=== PATIENT | female | born 1995 | race Caucasian/White ===

== ENCOUNTER 2016-06-24 11:49 | Emergency (ER) | payer OTHER ==
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
[2016-06-24 12:56] LABS: Appearance,Urine Cloudy (Clear); Bacteria,Urine Rare /hpf; Bilirubin,Urine Negative (Negative); Glucose,Urine (UA) Negative (Negative); Ketones,Urine 2+ (Negative); Leukocyte Esterase,Urine Negative (Negative); Mucus,Urine Many /hpf; Nitrite,Urine Negative (Negative); Particle Count 12384; Protein,Urine 1+ (Negative); RBC,Urine 4 /hpf (0-5); Specific Gravity,Urine 1.028 (1.001-1.035); Squamous Epithelial Cell,Urine 12 /hpf (0-4); UA Billing (MACRO vs. MICRO) MICRO; Urobilinogen,Urine <2.0 mg/dL (<2.0); WBC,Urine 1 /hpf (0-5)
--- NOTE | 2016-06-24 13:26 | XR ---
EXAMINATION TYPE: XR chest 2V DATE OF EXAM: 06/24/2016 1:21 PM COMPARISON: 06/16/2015 TECHNIQUE: PA and lateral views submitted. HISTORY: Cough, flulike symptoms FINDINGS: The lungs are clear and there is no pneumothorax, pleural effusion, or focal pneumonia. Slight curv ature of the spine. Rib deformities on the previous exam appear to be improved. IMPRESSION: 1. No acute process.
[2016-06-24 14:07] VITALS: BP 120/70; PULSE 85; RESP 18; TEMP 97.8
== END 2016-06-24 14:07 | disposition home or self-care (01) ==
LOC: EC 11:49
DX: S10.91XA Abrasion of unspecified part of neck, initial encounter (principal); J06.9 Acute upper respiratory infection, unspecified; L25.9 Unspecified contact dermatitis, unspecified cause; F17.200 Nicotine dependence, unspecified, uncomplicated; Z32.02 Encounter for pregnancy test, result negative; Z88.0 Allergy status to penicillin; Y04.0XXA Assault by unarmed brawl or fight, initial encounter
CPT/HCPCS: 71020; 81001; 81025; 87081; 87430; 87502; 99284

== ENCOUNTER 2017-01-31 14:59 | Emergency (ER) | payer OTHER ==
[2017-01-31 15:21] VITALS: BP 122/67; PULSE 101; RESP 18; TEMP 98.7
--- NOTE | 2017-01-31 15:41 | ED ---
ENT HPI - General Chief complaint: Dental/Oral Stated complaint: Abcess tooth Time Seen by Provider: 01/31/17 15:21 Source: patient, RN notes reviewed, old records reviewed Mode of arrival: ambulatory Limitations: no limitations - History of Present Illness Initial comments: 21-year-old female presents emergency Department chief complaint of an abscess tooth #4. Patient reports that she woke up yesterday with severe swelling over her gum. She reports that she thinks that that abscess is now popped and drained but she still has some swelling and pain over her gums. She states she has history of poor teeth. Patient states she is also concerned she might possibly be . She states that she stopped taking control 2 weeks ago, and there is a chance she could be . Patient states that she has abdominal pain, chest pain, shortness breath, nausea, vomiting or fevers or chills. Denies any difficulty swallowing or trismus. - Related Data Previous Rx's Medication Instructions Recorded Acetaminophen-Codeine 300-30mg 1 tab PO Q6H PRN #12 tablet 01/31/17 [Tylenol #3] Clindamycin [Cleocin] 450 mg PO TID 7 Days capsule 01/31/17 Allergies Allergy/AdvReac Type Severity Reaction Status Date / Time Penicillins Allergy Anaphylaxis Verified 01/31/17 15:16 Review of Systems ROS Statement: Those systems with pertinent positive or pertinent negative responses have been documented in the HPI. ROS Other: All systems not noted in ROS Statement are negative. Past Medical History Additional Past Medical History / Comment(s): back pain, rt ovarian cyst History of Any Multi-Drug Resistant Organisms: None Reported Past Surgical History: No Surgical Hx Reported Past Psychological History: Anxiety Smoking Status: Current every day smoker Past Alcohol Use History: None Reported Past Drug Use History: Marijuana General Exam - General Exam Comments Initial Comments: 21-year-old female. No acute distress. Limitations: no limitations General appearance: alert, in no apparent distress Head exam: Present: atraumatic, normocephalic, normal inspection Eye exam: Present: normal appearance, PERRL, EOMI. Absent: scleral icterus, conjunctival injection, periorbital swelling ENT exam: Present: normal exam, mucous membranes moist. Absent: other (Patient has poor dentition. Patient has abscess tooth #4.) Neck exam: Present: normal inspection. Absent: tenderness, meningismus, lymphadenopathy Respiratory exam: Present: normal lung sounds bilaterally. Absent: respiratory distress, wheezes, rales, rhonchi, stridor Cardiovascular Exam: Present: regular rate, normal rhythm, normal heart sounds. Absent: systolic murmur, diastolic murmur, rubs, gallop, clicks GI/Abdominal exam: Present: soft, normal bowel sounds. Absent: distended, tenderness, guarding, rebound, rigid Extremities exam: Present: normal inspection, full ROM, normal capillary refill. Absent: tenderness, pedal edema, joint swelling, calf tenderness Back exam: Present: normal inspection Neurological exam: Present: alert, oriented X3, CN II-XII intact Psychiatric exam: Present: normal affect, normal mood Skin exam: Present: warm, dry, intact, normal color. Absent: rash Course Vital Signs 01/31/17 15:19 Temperature 98.7 F Pulse Rate 101 H Respiratory 18 Rate Blood Pressure 122/67 O2 Sat by Pulse 98 Oximetry Medical Decision Making - Medical Decision Making 21-year-old female chief complaint of a dental abscess in tooth #4, and possibility . Patient has negative urine hCG. She does have some swelling and significant tenderness around the gum of tooth #4 and 5. Tooth #4 is broken off, multiple dental caries. Patient has no trismus, no difficulty swallowing or neck or face swelling. This time I'll put the patient on antibiotics for Dental infection. Patient was placed on clindamycin and she is ALLERGIC to penicillins. Discussed following up with a dentist, discussed the importance smoking cessation as well. Discussed smoking cessation for over 10 minutes. Discussed following up with primary care provider medications to aid in smoking cessation, and also discussed she needs repeat her urine hcg test in 2 weeks - Lab Data Lab Results 01/31/17 Range/Units 15:38 Urine HCG, Qual Not Detected (Not Detectd) - Radiology Data Radiology results: report reviewed Disposition Clinical Impression: Dental infection Disposition: HOME SELF-CARE Condition: Good Instructions: Dental Abscess (ED), Dental Caries (ED) Additional Instructions: [facility] [address] [place] [address] [phone] (existing clients only) For new clients: [phone] 1st consult: $50 (includes Xrays) Usually 30% less then private dentist for visits after. [employer] Have to pay $50 for Xrays anmd rest is covered. [phone] Prescriptions: Acetaminophen-Codeine 300-30mg [Tylenol #3] 1 tab PO Q6H PRN #12 tablet PRN Reason: Pain Clindamycin [Cleocin] 450 mg PO TID 7 Days capsule Referrals: Alejandro Ding MD [Primary Care Provider] - 1-2 days Time of Disposition: 15:56
== END 2017-01-31 16:05 | disposition home or self-care (01) ==
LOC: EC 14:59
DX: K04.7 Periapical abscess without sinus (principal); F17.200 Nicotine dependence, unspecified, uncomplicated; Z88.0 Allergy status to penicillin
CPT/HCPCS: 81025; 99283

== ENCOUNTER 2017-03-06 12:27 | Emergency (ER) | payer OTHER ==
[2017-03-06] MEDS ORDERED: ACETAMINOPHEN TAB 325 MG TAB PO STA (14:10)
--- NOTE | 2017-03-06 14:13 | ED ---
General Adult HPI - General Chief complaint: Skin/Abscess/Foreign Body Stated complaint: Cyst on Tailbone Time Seen by Provider: 03/06/17 13:36 Source: patient Mode of arrival: ambulatory Limitations: no limitations - History of Present Illness Initial comments: patient presents with a chief complaint of back pain and a missed period. Patient states that her back pain is an ache and is mostly in her shoulders. This is been going on for about one week. 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 There are no alleviating factors that she can think of that she has not tried any medications at home. Aggravating factors include moving her upper extremities and she states that her back is extra tight when she wakes up from sleep. Patient denies any other symptoms at this time - Related Data Previous Rx's Medication Instructions Recorded Methocarbamol [Robaxin-750] 750 mg PO TID PRN #15 tablet 03/06/17 Allergies Allergy/AdvReac Type Severity Reaction Status Date / Time Penicillins Allergy Anaphylaxis Verified 03/06/17 13:42 Review of Systems ROS Statement: Those systems with pertinent positive or pertinent negative responses have been documented in the HPI. ROS Other: All systems not noted in ROS Statement are negative. Constitutional: Denies: fever Eyes: Denies: vision change ENT: Denies: throat pain Respiratory: Denies: cough Cardiovascular: Denies: chest pain Gastrointestinal: Denies: abdominal pain, nausea, vomiting Genitourinary: Denies: dysuria Musculoskeletal: Reports: back pain, myalgia Neurological: Denies: headache Past Medical History Additional Past Medical History / Comment(s): back pain, rt ovarian cyst History of Any Multi-Drug Resistant Organisms: None Reported Past Surgical History: No Surgical Hx Reported Past Psychological History: Anxiety Smoking Status: Current every day smoker Past Alcohol Use History: None Reported Past Drug Use History: Marijuana General Exam Limitations: no limitations General appearance: alert, in no apparent distress Head exam: Present: atraumatic, normocephalic Eye exam: Present: normal appearance Neck exam: Present: normal inspection Respiratory exam: Present: normal lung sounds bilaterally Cardiovascular Exam: Present: regular rate, normal rhythm GI/Abdominal exam: Present: soft. Absent: distended, tenderness Rectal exam: Present: deferred Extremities exam: Present: normal inspection Back exam: Present: muscle spasm, paraspinal tenderness Neurological exam: Present: alert, oriented X3 Psychiatric exam: Present: normal affect, normal mood Skin exam: Present: warm, dry, intact Course Vital Signs 03/06/17 12:28 Temperature 97.3 F L Pulse Rate 105 H Respiratory 18 Rate Blood Pressure 107/66 O2 Sat by Pulse 99 Oximetry Medical Decision Making - Medical Decision Making patient presents with chief complaint of back pain and concern for . Back pain appears musculoskeletal in nature, patient is able to gait and move well. The tenderness is in the paraspinal musculature. Patient has not tried taking anything for this at home. Because she is concerned about , she will be given a dose of Tylenol while we check a urinalysis and urine hCG. 2:40 PM Urinalysis does not show any evidence of infection, further hCG is negative. Patient was given a dose of Robaxin the emergency department prescribe Robaxin for outpatient use for muscle spasm. She is instructed to follow up with primary care is given signs and symptoms that should prompt return visit to the emergency department. - Lab Data Lab Results 03/06/17 03/06/17 Range/Units 14:24 14:24 Urine Color Yellow Urine Appearance Turbid H (Clear) Urine pH 8.0 (5.0-8.0) Ur Specific [place] 1.014 (1.001-1.035) Urine Protein Trace H (Negative) Urine Glucose (UA) Negative (Negative) Urine Ketones Negative (Negative) Urine Blood Negative (Negative) Urine Nitrite Negative (Negative) Urine Bilirubin Negative (Negative) Urine Urobilinogen <2.0 (<2.0) mg/dL Ur Leukocyte Esterase Negative (Negative) Ur Squamous Epith Cells 14 H (0-4) /hpf Amorphous Sediment Moderate H (None) /hpf Urine HCG, Qual Not Detected (Not Detectd) Disposition Clinical Impression: Muscle spasm Disposition: HOME SELF-CARE Condition: Good Instructions: Muscle Spasm (ED) Prescriptions: Methocarbamol [Robaxin-750] 750 mg PO TID PRN #15 tablet PRN Reason: Muscle Spasm Referrals: Alejandro Ding MD [Primary Care Provider] - 1-2 days
[2017-03-06 14:36] LABS: Amorphous Sediment,Urine Moderate /hpf; Appearance,Urine Turbid (Clear); Bilirubin,Urine Negative (Negative); Glucose,Urine (UA) Negative (Negative); Ketones,Urine Negative (Negative); Leukocyte Esterase,Urine Negative (Negative); Nitrite,Urine Negative (Negative); Particle Count 18906; Protein,Urine Trace (Negative); Specific Gravity,Urine 1.014 (1.001-1.035); Squamous Epithelial Cell,Urine 14 /hpf (0-4); UA Billing (MACRO vs. MICRO) MICRO; Urobilinogen,Urine <2.0 mg/dL (<2.0)
[2017-03-06] MEDS ORDERED: METHOCARBAMOL 750 MG TAB PO PRN (14:38)
[2017-03-06 14:52] VITALS: BP 104/55; PULSE 75; RESP 16; TEMP 98
== END 2017-03-06 15:19 | disposition home or self-care (01) ==
LOC: EC 12:27
DX: M62.830 Muscle spasm of back (principal); F17.200 Nicotine dependence, unspecified, uncomplicated; Z88.0 Allergy status to penicillin
CPT/HCPCS: 81001; 81025; 99283

== ENCOUNTER → 2017-06-20 | Outpatient (CLI) | payer OTHER ==
--- NOTE | 2017-06-20 16:29 | US ---
EXAMINATION TYPE: US OB <= 14 wk fetus DATE OF EXAM: 06/20/2017 COMPARISON: NONE CLINICAL HISTORY: O99.331 Tobacco smoking affecting . Confirm dates EXAM PERFORMED: Transabdominal (TA) EXAM MEASUREMENTS: GESTATIONAL AGE / DATING Physician Established: Not yet established Dates by LMP: (13 weeks/1 days) EDC: 12/25/2017 Dates by First Scan: No prior Dates by Current Scan for: (7 weeks/6 days) EDC: 01/31/2018 MATERNAL ANATOMY Uterus: 9.5 x 5.1 x 6.6 cm Right Ovary: 1.7 x 1.0 x 1.7 cm Left Ovary: 2.9 x 1.7 x 2.8 cm Post CDS / Adnexa: wnl Presence of free fluid: No Presence of corpus luteal cyst: Left Ovary= 1.7 x 1.4 x 1.2 cm Presence of subchorionic bleed: No GESTATION / SURVEY CRL: 1.5 cm (7 weeks/6 days) MSD: wnl Yolk Sac (normal less than 6mm): 3mm Heart Rate: 165 bpm Rhythm: Normal IUP: Viable IUP Date of LMP: Pt not sure, thinks 03/20/2017 Single, viable IUP, No abnormality visualized at this time IMPRESSION: 1. Single intrauterine gestation estimated at 7 weeks 6 days gestation based on crown-rump length. Ca rdiac activity measures 165 bpm. This would have a calculated EDC of 01/31/2018 based on the crown-ru mp length at this time.
== END | disposition home or self-care (01) ==
LOC: RADUSMAIN 15:47
PROVIDERS: ATTEND Obstetrics & Gynecology
DX: O99.331 Smoking (tobacco) complicating pregnancy, first trimester (principal); F17.200 Nicotine dependence, unspecified, uncomplicated; Z3A.01 Less than 8 weeks gestation of pregnancy
CPT/HCPCS: 76801

== ENCOUNTER 2017-08-01 18:59 | Emergency (ER) | payer OTHER ==
--- NOTE | 2017-08-01 20:19 | ED ---
Lower Extremity Injury HPI - General Chief Complaint: Extremity Injury, Lower Stated Complaint: hip/back/lower abominal pain-13 wks preg Time Seen by Provider: 08/01/17 20:02 Source: patient, RN notes reviewed Mode of arrival: ambulatory Limitations: no limitations - History of Present Illness Initial Comments: This is a 22-year-old female presents to the emergency department with chief complaint of left hip injury. Patient states that she is currently 13 weeks . She states that she was working this evening. At approximately 5:30 PM she was lifting a bale. She states that she felt a sudden "pop" in her left hip. She complains of pain in the hip on ambulation with radiation to her left groin. Denies any falls or trauma. She states she is most concerned about her baby. Denies any vaginal bleeding or discharge. Denies any significant abdominal pain, nausea or vomiting. Denies fevers or chills, chest pain or shortness breath. - Related Data Home Medications Medication Instructions Recorded Confirmed Pnv No.95/Ferrous Fum/Folic AC 1 tab PO DAILY 08/01/17 08/01/17 [ Multivitamin Tablet] Allergies Allergy/AdvReac Type Severity Reaction Status Date / Time Penicillins Allergy Anaphylaxis Verified 08/01/17 19:56 Review of Systems ROS Statement: Those systems with pertinent positive or pertinent negative responses have been documented in the HPI. ROS Other: All systems not noted in ROS Statement are negative. Past Medical History Additional Past Medical History / Comment(s): back pain, rt ovarian cyst History of Any Multi-Drug Resistant Organisms: None Reported Past Surgical History: No Surgical Hx Reported Past Psychological History: Anxiety Smoking Status: Current every day smoker Past Alcohol Use History: None Reported Past Drug Use History: Marijuana General Exam - General Exam Comments Initial Comments: General: Awake and alert, well-developed; in no apparent distress. HEENT: Head atraumatic, normocephalic. Pupils are equal, round and reactive to light. Extraocular movements intact. Oropharynx moist without erythema or exudate. Neck: Supple. Normal ROM. Cardiovascular: Regular rate and rhythm. No murmurs, rubs or gallops. Chest symmetrical. Respiratory: Lungs clear to auscultation bilaterally. No wheezes, rales or rhonchi. Normal respiratory effort with no use of accessory muscles. Abdomen: Soft, non-tender, non-distended. No rigidity, rebound or guarding. Normal bowel sounds in all 4 quadrants. Musculoskeletal: Normal range of motion of the left hip. No tenderness on palpation. No obvious gross deformities. Patient is ambulating normally. Pedal pulses are 2+ equal and palpable bilaterally. Skin: [place], warm and dry without rashes or lesions. Neurological: Alert and oriented x3. CN II-XII grossly intact. Speech is fluent and answers are appropriate. No focal neuro deficits. Psychiatric: Normal mood and affect. No overt signs of depression or anxiety noted. Limitations: no limitations Course Vital Signs 08/01/17 19:35 Temperature 98.0 F Pulse Rate 88 Respiratory 17 Rate Blood Pressure 143/84 O2 Sat by Pulse 95 Oximetry Medical Decision Making - Medical Decision Making This is a 22-year-old female who presents to the emergency department with chief complaint of left hip injury. She states that earlier this evening while at work she felt a "pop" in her left hip. She complains of pain with walking. She states the pain is in her left hip and radiates to her groin. Patient states she is currently 13 weeks . Denies any abdominal pain, nausea or vomiting, vaginal bleeding or discharge. On physical examination, patient has normal range of motion of the left hip and there is no tenderness on palpation. She is ambulating normally. No obvious gross deformities. On review of patient's chart, there is a confirmed intrauterine on an ultrasound obtained on 06/20/2017. At that time patient was 7 weeks, 6 days gestation. Patient was evaluated by labor and delivery and heart tones were auscultated. Heart tones were in the 140s to 150s. Patient will be discharged home at this time. Recommend following up with her WAREHOUSE LOGISTICS COORDINATOR. She is in agreement with plan and voices understanding. All questions answered. Disposition Clinical Impression: Strain of left hip Disposition: HOME SELF-CARE Condition: Good Instructions: Hip Pain (ED) Additional Instructions: Please follow-up with your WAREHOUSE LOGISTICS COORDINATOR within 1-2 days. Please take Tylenol as needed for pain. Please follow up with primary care provider within 1-2 days. Return to emergency department if symptoms should worsen or any concerns arise. Is patient prescribed a controlled substance at d/c from ED?: No Referrals: Piedad Quintanilla MD [Primary Care Provider] - 1-2 days Time of Disposition: 21:04
[2017-08-01 21:16] VITALS: BP 105/61; PULSE 82; RESP 18; TEMP 98.1
== END 2017-08-01 21:15 | disposition home or self-care (01) ==
LOC: EC 18:59
DX: O9A.211 Injury, poisoning and certain other consequences of external causes complicating pregnancy, first trimester (principal); S76.012A Strain of muscle, fascia and tendon of left hip, initial encounter; O99.89 Other specified diseases and conditions complicating pregnancy, childbirth and the puerperium; R10.32 Left lower quadrant pain; O99.331 Smoking (tobacco) complicating pregnancy, first trimester; F17.200 Nicotine dependence, unspecified, uncomplicated; Z79.899 Other long term (current) drug therapy; Z88.0 Allergy status to penicillin; Z3A.13 13 weeks gestation of pregnancy; X50.0XXA Overexertion from strenuous movement or load, initial encounter; Y93.89 Activity, other specified; Y92.69 Other specified industrial and construction area as the place of occurrence of the external cause; Y99.0 Civilian activity done for income or pay
CPT/HCPCS: 99283

== ENCOUNTER → 2017-09-13 | Outpatient (CLI) | payer OTHER ==
--- NOTE | 2017-09-13 13:17 | US ---
EXAMINATION TYPE: US OB anatomy transabd DATE OF EXAM: 09/13/2017 COMPARISON: US 06/20/17 first trimester HISTORY: Z34.90 SUPERVISION OF NORMAL PREG second trimester TECHNIQUE: Transabdominal (TA) EXAM MEASUREMENTS: GESTATIONAL AGE / DATING Physician Established: (20 weeks/0 days) EDC: 01/31/2018 Dates by LMP: Unsure Dates by First Scan: (20 weeks/ 0 days) EDC: 01/31/2018 Dates by Current Scan for: (20 weeks/ 2 days) EDC: 01/29/2018 SURVEY IUP: Single PLACENTA: Posterior PREVIA: No previa LOTUS: 10.9 cm Normal CERVICAL LENGTH (transabdominal: norm > 3.0cm): 4.8 cm BIOMETRY PRESENTATION: Variable LIE: Oblique BPD: 4.7 cm 20 weeks / 1 days HC: 6.3 cm 20 weeks / 0 days AC: 15.4 cm 20 weeks / 4 days FL: 3.3 cm 20 weeks / 3 days ESTIMATED WEIGHT IN GRAMS: 354.7 grams ESTIMATED WEIGHT IN LBS/OZ: lbs. 13 oz. WEIGHT PERCENTAGE BASED ON ESTABLISHED DATE: 17.4 % HC/AC: 1.1 Normal FL/AC: 71.1 Normal HEART RATE: 148 bpm RHYTHM: Normal ANATOMY SEEN (within normal limits): * Lateral Vent (< 1 cm) 0.5 cm * Cisterna Magna (< 1.1 cm) 0.4 cm * Nuchal Fold (< 0.6 cm) 0.2 cm * Cerebellum (varies with age) 1.9 cm Choroid Plexus (bilateral) Midline Falx Cavus Septi Pellucidi Four Chamber Heart Stomach Situs Nose / Lips Diaphragm Kidneys (bilateral) Bladder Cord Insert Three Vessel Cord Longitudinal Spine Transverse Spine Arms (bilateral) Legs (bilateral) ANATOMY SEEN (does not appear within normal limits): ANATOMY NOT SEEN: Outflow tracts: LVOT/RVOT MATERNAL WALL MEASUREMENT: cm from skin to anterior uterine wall (if exam limited due to body habitus ). lie was spine up, limiting visualization of the outflow tracts. Patent will schedule for OB kayla lback to recheck. Single live intrauterine gestation is redemonstrated. Cervix is not suspiciously thinned. There is no ultrasound evidence for placenta previa. Amniotic fluid index is within normal limits. A variable pr esentation to fetus is seen during real-time scanning. biometry measurements are congruent and felt within normal limits. During real-time scanning anatomical structures are felt within normal limits with exception of the p ulmonary outflow tracts which cannot be visualized due to position overlie. Saved images show p oor visualization of bilateral kidneys as well as entire 4 chamber heart. IMPRESSION: As above
== END | disposition home or self-care (01) ==
LOC: RADUSWWP 11:16
PROVIDERS: ATTEND Internal Medicine
DX: Z34.92 Encounter for supervision of normal pregnancy, unspecified, second trimester (principal)
CPT/HCPCS: 76811

== ENCOUNTER 2018-11-28 14:00 | Emergency (ER) | payer OTHER ==
[2018-11-28 14:08] VITALS: BP 112/69; PULSE 97; RESP 18; TEMP 98.2
--- NOTE | 2018-11-28 15:02 | ED ---
Skin/Abscess/FB HPI - General Chief complaint: Skin/Abscess/Foreign Body Stated complaint: Poss Hemorrhoids Time Seen by Provider: 11/28/18 14:09 Source: patient Mode of arrival: ambulatory Limitations: no limitations - History of Present Illness Initial comments: Patient is a 23-year-old female presenting to emergency Department with complaints of irritation around her anus x 2 weeks. Patient states she thought it may be from shaving around the area or possibly from having loose stools for the last few days. Patient states it is not improving. Patient then read online that she could have hemorrhoids. Patient did have a baby proximally 10 months ago. Patient denies any fever, chills, chest pain, shortness of breath, bleeding from the rectum, blood in the stool. Patient denies any other complaints at this time. Upon arrival to ER vital signs are stable. - Related Data Home Medications Medication Instructions Recorded Confirmed Pnv No.95/Ferrous Fum/Folic AC 1 tab PO DAILY 08/01/17 08/01/17 [ Multivitamin Tablet] Previous Rx's Medication Instructions Recorded Hydrocortisone Cream 1 applic TOPICAL BID 5 Days #1 tube 11/28/18 [Hydrocortisone 2.5% Cream] Allergies Allergy/AdvReac Type Severity Reaction Status Date / Time Penicillins Allergy Anaphylaxis Verified 11/28/18 14:08 Review of Systems ROS Statement: Those systems with pertinent positive or pertinent negative responses have been documented in the HPI. ROS Other: All systems not noted in ROS Statement are negative. Past Medical History Past Medical History: No Reported History Additional Past Medical History / Comment(s): back pain, rt ovarian cyst History of Any Multi-Drug Resistant Organisms: None Reported Past Surgical History: Cholecystectomy Past Psychological History: Anxiety Smoking Status: Current every day smoker Past Alcohol Use History: None Reported Past Drug Use History: Marijuana General Exam - General Exam Comments Initial Comments: GENERAL: Well-appearing, well-nourished and in no acute distress. HEAD: Atraumatic, normocephalic. EYES: Pupils equal round and reactive to light, extraocular movements intact, sclera anicteric, conjunctiva are normal. ENT: TMs normal, nares patent, oropharynx clear without exudates. Moist mucous membranes. NECK: Normal range of motion, supple without lymphadenopathy or JVD. LUNGS: Breath sounds clear to auscultation bilaterally and equal. No wheezes rales or rhonchi. HEART: Regular rate and rhythm without murmurs, rubs or gallops. ABDOMEN: Soft, nontender, normoactive bowel sounds. No guarding, no rebound. No masses appreciated. EXTREMITIES: Normal range of motion, no pitting or edema. No clubbing or cyanosis. NEUROLOGICAL: Cranial nerves II through XII grossly intact. Normal speech, normal gait. PSYCH: Normal mood, normal affect. SKIN: Warm, Dry, normal turgor, no rashes or lesions noted. Limitations: no limitations Rectal exam: Present: normal inspection, normal rectal tone, other (Mild irritation around the rectum, no pain with palpation.). Absent: fecal impaction, hemorrhoids, mass, tenderness Course Vital Signs 11/28/18 14:05 Temperature 98.2 F Pulse Rate 97 Respiratory 18 Rate Blood Pressure 112/69 O2 Sat by Pulse 98 Oximetry Medical Decision Making - Medical Decision Making Patient is a 23-year-old female presenting with irritation around the anus 2 weeks. Patient denies any fever, chills, blood in the stool, bleeding for the rectum. On exam patient has some mild irritation around the anus. No pain with palpation. It was discussed with patient this most likely a dermatitis type issue secondary to shaving or diarrhea. There is no hemorrhoids present. Patient will be given steroid cream to help with symptoms. Patient will follow up with either PCP or ANIMAL CARE SUPERVISOR for further treatment if symptoms persist. Is in agreement with this plan of care. Patient stable for discharge at this time. Return parameters were discussed with the patient she verbalized understanding. Case discussed with Dr. Mendez. Disposition Clinical Impression: Dermatitis Disposition: HOME SELF-CARE Condition: Stable Instructions (If sedation given, give patient instructions): Anal Itching (ED) Additional Instructions: Please return to the Emergency Department if symptoms worsen or any other concerns. Prescriptions: Hydrocortisone Cream [Hydrocortisone 2.5% Cream] 1 applic TOPICAL BID 5 Days #1 tube Is patient prescribed a controlled substance at d/c from ED?: No Referrals: None,Stated [Primary Care Provider] - 1-2 days
== END 2018-11-28 15:09 | disposition home or self-care (01) ==
LOC: EC 14:00
DX: L30.9 Dermatitis, unspecified (principal); F17.200 Nicotine dependence, unspecified, uncomplicated; Z88.0 Allergy status to penicillin
CPT/HCPCS: 99282

== ENCOUNTER 2018-12-29 17:25 | Emergency (ER) | payer OTHER ==
--- NOTE | 2018-12-29 18:47 | ED ---
General Adult HPI - General Chief complaint: Extremity Injury, Lower Stated complaint: Leg pain Time Seen by Provider: 12/29/18 17:33 Source: patient, RN notes reviewed, old records reviewed Mode of arrival: wheelchair Limitations: no limitations - History of Present Illness Initial comments: 23-year-old female patient presents to ED for chief complaint of left calf pain. Patient reports that her calf isn't bothering her for approximately 5 days. Patient reportedly began after doing a relatively long walk outside. Patient denies any chest pain shortness of breath. Patient denies any other complaints at this time. Systemic: Pt denies fatigue, fever/chills, rash. Pt denies weakness, night sweats, weight loss. Neuro: Pt denies headache, visual disturbances, syncope or pre-syncope. HEENT: Pt denies ocular discharge or irritation, otalgia, rhinorrhea, pharyngitis or notable lymphadenopathy. Cardiopulmonary: Pt denies chest pain, SOB, heart palpitations, dyspnea on exertion. Abdominal/GI: Pt denies abdominal pain, n/v/d. : Pt denies dysuria, burning w/ urination, frequency/urgency. Denies new onset urinary or bowel incontinence. MSK: Pt denies oss of strength or function in extremities. Neuro: Pt denies new onset weakness, paresthesias. - Related Data Home Medications Medication Instructions Recorded Confirmed Pnv No.95/Ferrous Fum/Folic AC 1 tab PO DAILY 08/01/17 08/01/17 [ Multivitamin Tablet] Previous Rx's Medication Instructions Recorded Hydrocortisone Cream 1 applic TOPICAL BID 5 Days #1 tube 11/28/18 [Hydrocortisone 2.5% Cream] Allergies Allergy/AdvReac Type Severity Reaction Status Date / Time Penicillins Allergy Anaphylaxis Verified 12/29/18 17:32 Review of Systems ROS Statement: Those systems with pertinent positive or pertinent negative responses have been documented in the HPI. ROS Other: All systems not noted in ROS Statement are negative. Past Medical History Past Medical History: No Reported History Additional Past Medical History / Comment(s): back pain, rt ovarian cyst History of Any Multi-Drug Resistant Organisms: None Reported Past Surgical History: Cholecystectomy Past Psychological History: Anxiety Smoking Status: Current every day smoker Past Alcohol Use History: None Reported Past Drug Use History: Marijuana General Exam - General Exam Comments Initial Comments: Constitutional: NAD, AOX3, Pt has pleasant affect. HEENT: NC/AT, trachea midline, neck supple, no lymphadenopathy. Posterior pharynx non erythematous, without exudates. External ears appear normal, without discharge. Mucous membranes moist. Eyes PERRLA, EOM intact. There is no scleral icterus. No pallor noted. Cardiopulmonary: RRR, no murmurs, rubs or gallops, no JVD noted. Lungs CTAB in anterior and posterior heller. No peripheral edema. Abdominal exam: Abdomen soft and non-distended. Abdomen non-tender to palpation in all 4 quadrants. Bowel sounds active in LLQ. No hepatosplenomegaly. No ecchymosis Neuro: CN II-XII grossly intact. No nuchal rigidity. No raccon eyes, no hughes sign, no hemotympanum. No cervical spinal tenderness. MSK: Left calf nontender to palpation. Right calf nontender. No skin changes, no erythema. No unilateral leg swelling., homans sign negative bilaterally. Posterior tibialis and radial pulse +2 bilaterally. Sensation intact in upper and lower extremities. Full active ROM in upper and lower extremities, 5/5 stregnth. Limitations: no limitations Course Vital Signs 12/29/18 17:30 Temperature 98.1 F Pulse Rate 101 H Respiratory 16 Rate Blood Pressure 107/67 O2 Sat by Pulse 97 Oximetry Medical Decision Making - Medical Decision Making 23-year-old female patient presents to ED complaining of left calf plain. Patient vital signs stable, afebrile. Physical exam displayed left calf moderately tender to palpation. No skin changes. Patient neurovascular intact. Ultrasound negative for DVT. Patient likely has musculoskeletal strain. Patient was discharged, placed, much as needed for pain. Will follow up with primary care provider. Case discussed with Dr. Kwok. Disposition Clinical Impression: Myalgia Disposition: HOME SELF-CARE Condition: Stable Instructions (If sedation given, give patient instructions): Musculoskeletal Pain (ED) Additional Instructions: Patient to adhere to previously discussed treatment plan and will take medication(s) as directed. Patient to follow up with PCP in 1-2 days. Patient to return to ED if symptoms do not improve. Follow-up with PCP tomorrow, return to ER if condition worsens. Is patient prescribed a controlled substance at d/c from ED?: No Referrals: Piedad Quintanilla MD [Primary Care Provider] - 1-2 days
--- NOTE | 2018-12-29 19:40 | US ---
EXAMINATION TYPE: US venous doppler duplex LE LT DATE OF EXAM: 12/29/2018 6:51 PM COMPARISON: None. CLINICAL HISTORY: Posterior calf pain. SIDE PERFORMED: Left TECHNIQUE: The lower extremity deep venous system is examined utilizing real time linear array sonog marin with graded compression, doppler sonography and color-flow sonography. VESSELS IMAGED: External Iliac Vein (EIV) Common Femoral Vein Deep Femoral Vein Greater Saphenous Vein * Femoral Vein Popliteal Vein Proximal Calf Veins (* superficial vessels) There is normal color flow, venous waveforms, and compressibility of the imaged left calf veins. IMPRESSION: No evidence for DVT.
[2018-12-29 20:08] VITALS: BP 101/71; PULSE 79; RESP 18; TEMP 98.7
== END 2018-12-29 20:07 | disposition home or self-care (01) ==
LOC: EC 17:25
DX: M79.10 Myalgia, unspecified site (principal); M79.662 Pain in left lower leg; F17.200 Nicotine dependence, unspecified, uncomplicated; Z88.0 Allergy status to penicillin
CPT/HCPCS: 99284

== ENCOUNTER 2019-02-21 13:12 | Emergency (ER) | payer OTHER ==
[2019-02-21] MEDS ORDERED: BENZOCAINE/MENTHOL SPRAY 1 GM/SPRAY AEROSOL TOPICAL STA (14:37)
[2019-02-21] MEDS ORDERED: KETOROLAC 30 MG/ML 1 ML VIAL IM STA (14:37)
[2019-02-21 15:34] LABS: Amorphous Sediment,Urine Rare /hpf; Appearance,Urine Turbid (Clear); Bilirubin,Urine Negative (Negative); Blood,Urine Negative (Negative); Color,Urine Yellow; Glucose,Urine (UA) Negative (Negative); Ketones,Urine 2+ (Negative); Leukocyte Esterase,Urine Small (Negative); Mucus,Urine Many /hpf; Nitrite,Urine Negative (Negative); Protein,Urine 1+ (Negative); RBC,Urine 1 /hpf (0-5); Squamous Epithelial Cell,Urine 9 /hpf (0-4); WBC,Urine 5 /hpf (0-5)
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
[2019-02-21 16:19] VITALS: BP 107/79; PULSE 58; RESP 18; TEMP 98
[2019-02-22 14:32] LABS: C. trachomatis,PCR Negative (Neg,Equiv); Chlamydia trachomatis Source Vagina
[2019-02-22 15:11] LABS: N. gonorrhoeae,PCR Negative (Neg,Equiv); Neisseria Source Vagina
== END 2019-02-21 16:13 | disposition home or self-care (01) ==
LOC: EC 13:12
DX: S36.60XA Unspecified injury of rectum, initial encounter (principal); K59.00 Constipation, unspecified; F17.200 Nicotine dependence, unspecified, uncomplicated; Z88.0 Allergy status to penicillin; X58.XXXA Exposure to other specified factors, initial encounter
CPT/HCPCS: 99283; 96372; 81001; 81025; 87808; 87491; 87591; 87070; J1885

== ENCOUNTER 2019-03-16 14:50 | Emergency (ER) | payer OTHER ==
[2019-03-16 15:20] VITALS: BP 107/77; PULSE 92; RESP 18; TEMP 97.7
--- NOTE | 2019-03-16 15:31 | ED ---
General Adult HPI - General Chief complaint: ENT Stated complaint: sore throat Time Seen by Provider: 03/16/19 15:22 Source: patient, RN notes reviewed Mode of arrival: ambulatory Limitations: no limitations - History of Present Illness Initial comments: 23-year-old female with a past medical history of tonsillitis presents to the emergency department for a chief complaint of sore throat. Patient states she has had a sore throat for the past 3 days. States it is painful to swallow but denies any difficulty swallowing. States she often gets strep and tonsillitis. Patient requesting a referral to an ENT. Patient wants to make sure she does not have strep. Denies fevers or chills. Denies neck stiffness. Denies trismus. States she is still eating and drinking.Patient has no other complaints at this time including shortness of breath, chest pain, abdominal pain, nausea or vomiting, headache, or visual changes. - Related Data Home Medications Medication Instructions Recorded Confirmed Pnv No.95/Ferrous Fum/Folic AC 1 tab PO DAILY 08/01/17 08/01/17 [ Multivitamin Tablet] Previous Rx's Medication Instructions Recorded Hydrocortisone Cream 1 applic TOPICAL BID 5 Days #1 tube 11/28/18 [Hydrocortisone 2.5% Cream] Hydrocortisone [Anusol-Hc] 1 applic RECTAL TID PRN #60 gm 02/21/19 Polyethylene Glycol 3350 [Miralax] 17 gm PO DAILY #527 gm 02/21/19 Allergies Allergy/AdvReac Type Severity Reaction Status Date / Time Penicillins Allergy Anaphylaxis Verified 03/16/19 15:18 Review of Systems ROS Statement: Those systems with pertinent positive or pertinent negative responses have been documented in the HPI. ROS Other: All systems not noted in ROS Statement are negative. Past Medical History Past Medical History: No Reported History Additional Past Medical History / Comment(s): back pain, rt ovarian cyst History of Any Multi-Drug Resistant Organisms: None Reported Past Surgical History: Cholecystectomy Past Psychological History: Anxiety Smoking Status: Current every day smoker Past Alcohol Use History: None Reported Past Drug Use History: Marijuana General Exam Limitations: no limitations General appearance: alert, in no apparent distress Head exam: Present: atraumatic, normocephalic, normal inspection Eye exam: Present: normal appearance, PERRL, EOMI. Absent: scleral icterus, conjunctival injection, periorbital swelling ENT exam: Present: normal exam, normal oropharynx (non-erythematous, non buldging, ), mucous membranes moist, TM's normal bilaterally, normal external ear exam Neck exam: Present: normal inspection, full ROM. Absent: tenderness, meningismus, lymphadenopathy Respiratory exam: Present: normal lung sounds bilaterally. Absent: respiratory distress, wheezes, rales, rhonchi, stridor Cardiovascular Exam: Present: regular rate, normal rhythm, normal heart sounds. Absent: systolic murmur, diastolic murmur, rubs, gallop, clicks Neurological exam: Present: alert, oriented X3 Psychiatric exam: Present: normal affect, normal mood Course Vital Signs 03/16/19 15:18 Temperature 97.7 F Pulse Rate 92 Respiratory 18 Rate Blood Pressure 107/77 O2 Sat by Pulse 99 Oximetry Medical Decision Making - Medical Decision Making Strep is negative. Culture will be sent. There are no tonsillar units on exam. No tender cervical adenopathy. Patient does not have any difficulty swallowing. No trismus. No neck stiffness. She likely has pharyngitis. Discussed Motrin and Tylenol for pain. Discussed following up with primary care returning if she has any worsening symptoms. She is requesting the name of ENT - Lab Data Lab Results 03/16/19 Range/Units 15:27 Group A Strep Rapid Negative (Negative) Disposition Clinical Impression: Pharyngitis Disposition: HOME SELF-CARE Condition: Good Instructions (If sedation given, give patient instructions): Pharyngitis (ED) Additional Instructions: Please take Motrin and Tylenol for pain. Try warm salt water gargles. Please follow-up with primary care in 1-2 days. Return here to the emergency department if you have any worsening symptoms. Is patient prescribed a controlled substance at d/c from ED?: No Referrals: Piedad Quintanilla MD [Primary Care Provider] - 1-2 days Time of Disposition: 15:49
== END 2019-03-16 16:10 | disposition home or self-care (01) ==
LOC: EC 14:50
DX: J02.9 Acute pharyngitis, unspecified (principal); F17.200 Nicotine dependence, unspecified, uncomplicated; Z88.0 Allergy status to penicillin
CPT/HCPCS: 87081; 87430; 99283

== ENCOUNTER 2020-10-30 16:36 | Emergency (ER) | payer OTHER ==
[2020-10-30 17:49] LABS: Appearance,Urine Cloudy (Clear); Bilirubin,Urine Negative (Negative); Blood,Urine Negative (Negative); Color,Urine Yellow; Glucose,Urine (UA) Negative (Negative); Hyaline Casts,Urine 1 /lpf (0-2); Ketones,Urine Negative (Negative); Leukocyte Esterase,Urine Negative (Negative); Mucus,Urine Rare /hpf; Nitrite,Urine Negative (Negative); PH, Urine 7.5 (5.0-8.0); Protein,Urine Negative (Negative); RBC,Urine 1 /hpf (0-5); Specific Gravity,Urine 1.014 (1.001-1.035); Squamous Epithelial Cell,Urine 31 /hpf (0-4); Urobilinogen,Urine <2.0 mg/dL (<2.0); WBC,Urine 1 /hpf (0-5)
--- NOTE | 2020-10-30 18:10 | ED ---
General Adult HPI - General Chief complaint: Recheck/Abnormal Lab/Rx Stated complaint: wants test Time Seen by Provider: 10/30/20 17:23 Source: patient Mode of arrival: ambulatory Limitations: no limitations - History of Present Illness Initial comments: Is a 25-year-old female who presents emergent department for concerns of being . The patient states her last [facility]. Was approximately one month ago. She states that she was recently incarcerated and just released. She states that she woke up this morning and felt that she may be . She admits to a little bit of lower abdominal cramping. No dysuria or hematuria. No vaginal bleeding or discharge. She states that she is Rh- and was concerned that she may need RhoGAM. She denies any other symptoms. No nausea, vomiting, or diarrhea. No fevers or chills. No other complaints. States that she did take some home pregnancies and thought that one might be positive however was unsure so she came to the emergency department. - Related Data Home Medications Medication Instructions Recorded Confirmed Pnv No.95/Ferrous Fum/Folic AC 1 tab PO DAILY 08/01/17 08/01/17 [ Multivitamin Tablet] Previous Rx's Medication Instructions Recorded Hydrocortisone Cream 1 applic TOPICAL BID 5 Days #1 tube 11/28/18 [Hydrocortisone 2.5% Cream] Hydrocortisone [Anusol-Hc] 1 applic RECTAL TID PRN #60 gm 02/21/19 Polyethylene Glycol 3350 [Miralax] 17 gm PO DAILY #527 gm 02/21/19 Allergies Allergy/AdvReac Type Severity Reaction Status Date / Time Penicillins Allergy Anaphylaxis Verified 10/30/20 17:05 Review of Systems ROS Statement: Those systems with pertinent positive or pertinent negative responses have been documented in the HPI. ROS Other: All systems not noted in ROS Statement are negative. Past Medical History Past Medical History: Renal Disease Additional Past Medical History / Comment(s): back pain, rt ovarian cyst History of Any Multi-Drug Resistant Organisms: None Reported Past Surgical History: Cholecystectomy Past Psychological History: Anxiety Smoking Status: Current every day smoker, Vaper Past Alcohol Use History: None Reported Past Drug Use History: Marijuana General Exam - General Exam Comments Initial Comments: Constitutional: Awake alert Appears comfortable Head: Normocephalic atraumatic Eyes: no conjunctival injection No scleral icterus EOMI Neck: No JVD Supple Heart: Regular rate rhythm normal S1-S2 no murmurs Lungs: Clear to auscultation bilaterally No wheezing No rales Abdomen: Soft nondistended nontender Extremities: Non edematous DP pulses intact Radial pulses intact Neuro: A&Ox3 No focal neurologic deficits Psych: Appropriate mood and affect Limitations: no limitations Course Vital Signs 10/30/20 10/30/20 17:02 18:20 Temperature 98.0 F 98 F Pulse Rate 79 78 Respiratory 20 16 Rate Blood Pressure 99/66 128/75 O2 Sat by Pulse 98 98 Oximetry Medical Decision Making - Medical Decision Making Is a 25-year-old female who presents emergency department for concerns of being . Urine was negative. Urinalysis was unremarkable. The patient was nontoxic appearing and had no abdominal pain on examination. She had no other complaints. She was advised to follow-up closely with primary doctor. She can recheck test again in a week if she still has concerned has not had her period. Can return the emergency room if she has any vaginal bleeding, discharge, abdominal pain, or any other complaints. - Lab Data Lab Results 10/30/20 10/30/20 Range/Units 17:18 17:18 Urine Color Yellow Urine Appearance Cloudy H (Clear) Urine pH 7.5 (5.0-8.0) Ur Specific [place] 1.014 (1.001-1.035) Urine Protein Negative (Negative) Urine Glucose (UA) Negative (Negative) Urine Ketones Negative (Negative) Urine Blood Negative (Negative) Urine Nitrite Negative (Negative) Urine Bilirubin Negative (Negative) Urine Urobilinogen <2.0 (<2.0) mg/dL Ur Leukocyte Esterase Negative (Negative) Urine RBC 1 (0-5) /hpf Urine WBC 1 (0-5) /hpf Ur Squamous Epith Cells 31 H (0-4) /hpf Hyaline Casts 1 (0-2) /lpf Urine Mucus Rare H (None) /hpf Urine HCG, Qual Not Detected (Not Detectd) Disposition Clinical Impression: Concern about current without diagnosis Disposition: HOME SELF-CARE Condition: Stable Instructions (If sedation given, give patient instructions): (ED) Is patient prescribed a controlled substance at d/c from ED?: No Referrals: None,Stated [Primary Care Provider] - 1-2 days
[2020-10-30 18:21] VITALS: BP 128/75; PULSE 78; RESP 16; TEMP 98
== END 2020-10-30 18:20 | disposition home or self-care (01) ==
LOC: EC 16:36
DX: Z32.02 Encounter for pregnancy test, result negative (principal); F12.90 Cannabis use, unspecified, uncomplicated; F17.200 Nicotine dependence, unspecified, uncomplicated; Z88.0 Allergy status to penicillin; Z90.49 Acquired absence of other specified parts of digestive tract
CPT/HCPCS: 81001; 81025; 99284

== ENCOUNTER 2021-01-17 14:48 | Emergency (ER) | payer OTHER ==
[2021-01-17 15:23] VITALS: RESP 18; TEMP 99.1
[2021-01-17] MEDS ORDERED: SODIUM CHLORIDE 0.9% 1,000 ML IV STA (16:37)
[2021-01-17] MEDS ORDERED: ONDANSETRON 4 MG/2 ML VIAL IVP STA (16:37)
[2021-01-17] MEDS ORDERED: FAMOTIDINE 20 MG/2 ML VIAL IV STA (16:38)
--- NOTE | 2021-01-17 16:47 | ED ---
Abdominal Pain HPI - General Chief Complaint: Abdominal Pain Stated Complaint: Nausea/Vomiting/Abdominal Pain Time Seen by Provider: 01/17/21 16:31 Source: patient Mode of arrival: ambulatory Limitations: no limitations - History of Present Illness Initial Comments: 25 year-old female patient presents to the emergency department for evaluation of abdominal pain, vomiting, and vaginal bleeding. Patient states she has positive home tests and started having vaginal bleeding two days ago. She assumed she was having a miscarriage. She is G11 T2 L1. States she became depressed last night after passing a large blood clot and drank a lot of alcohol. States she woke up today vomiting. She has had multiple episodes and is now having left upper quadrant pain. States she has had liver problems and kidney failure in the past and is worried. She denies fever or chills. Denies constipation or diarrhea. Patient denies any recent rash, cough, shortness of breath, chest pain, diarrhea, constipation, back pain, numbness, tingling, dizziness, weakness, hematuria, dysuria, urinary urgency, urinary frequency, headache, visual changes, or any other complaints. - Related Data Home Medications Medication Instructions Recorded Confirmed Pnv No.95/Ferrous Fum/Folic AC 1 tab PO DAILY 08/01/17 08/01/17 [ Multivitamin Tablet] Previous Rx's Medication Instructions Recorded Hydrocortisone Cream 1 applic TOPICAL BID 5 Days #1 tube 11/28/18 [Hydrocortisone 2.5% Cream] Hydrocortisone [Anusol-Hc] 1 applic RECTAL TID PRN #60 gm 02/21/19 Polyethylene Glycol 3350 [Miralax] 17 gm PO DAILY #527 gm 02/21/19 Allergies Allergy/AdvReac Type Severity Reaction Status Date / Time Penicillins Allergy Anaphylaxis Verified 01/17/21 15:23 Review of Systems ROS Statement: Those systems with pertinent positive or pertinent negative responses have been documented in the HPI. ROS Other: All systems not noted in ROS Statement are negative. Past Medical History Past Medical History: Renal Disease Additional Past Medical History / Comment(s): back pain, rt ovarian cyst, ZULY, sepsis History of Any Multi-Drug Resistant Organisms: None Reported Past Surgical History: Cholecystectomy Past Psychological History: Anxiety, Depression Smoking Status: Current every day smoker, Vaper Past Alcohol Use History: Heavy, Occasional Past Drug Use History: Marijuana General Exam Limitations: no limitations General appearance: alert, in no apparent distress, other (This is a well- developed, well-nourished adult female patient in no acute distress. Vital signs upon presentation temperature 99.1F, pulse 94, respirations 18, blood pressure 105/68, pulse ox 96% on room air.) Eye exam: Present: normal appearance, PERRL, EOMI. Absent: scleral icterus, conjunctival injection, periorbital swelling ENT exam: Present: normal exam, normal oropharynx, mucous membranes moist Respiratory exam: Present: normal lung sounds bilaterally. Absent: respiratory distress, wheezes, rales, rhonchi, stridor Cardiovascular Exam: Present: regular rate, normal rhythm, normal heart sounds. Absent: systolic murmur, diastolic murmur, rubs, gallop, clicks GI/Abdominal exam: Present: soft, tenderness (left upper quadrant), normal bowel sounds. Absent: distended, guarding, rebound, rigid Neurological exam: Present: alert, oriented X3, CN II-XII intact Psychiatric exam: Present: normal affect, normal mood Skin exam: Present: warm, dry, intact, normal color. Absent: rash Course Vital Signs 01/17/21 15:17 Temperature 99.1 F Pulse Rate 94 Respiratory 18 Rate Blood Pressure 105/68 O2 Sat by Pulse 96 Oximetry Medical Decision Making - Medical Decision Making 25-year-old female patient presents to the emergency department today for evaluation of vomiting and upper abdominal pain. Does admit to drinking heavily last night. She also reports positive test in November and is having vaginal bleeding. Physical examination did reveal midepigastric pain. She denies any suprapubic pain and there is no suprapubic tenderness. Labs reviewed and did reveal normal white blood cell count, normal renal and liver function. Her test was negative. I did inform her of the negative test results, questioned her further regarding lower abdominal pain and cramping, she denies having any at this time. They did give IV fluids in nausea medications. Upon reevaluation she is resting comfortably in bed. States all symptoms have resolved and she feels much better. States her comfortable being discharged home at this time. She is instructed to follow up with her primary care physician for recheck in 1-2 days. Return parameters were discussed in detail. She verbalizes understanding and agrees with this plan. Case discussed with my attending Dr. Negro. - Lab Data Result diagrams: 01/17/21 16:52 01/17/21 16:52 Lab Results 01/17/21 01/17/21 01/17/21 Range/Units 16:52 16:52 16:52 WBC 8.6 (3.8-10.6) k/uL RBC 4.95 (3.80-5.40) m/uL Hgb 15.3 (11.4-16.0) gm/dL Hct 45.8 (34.0-46.0) % MCV 92.4 (80.0-100.0) fL MCH 30.9 (25.0-35.0) pg MCHC 33.4 (31.0-37.0) g/dL RDW 13.2 (11.5-15.5) % Plt Count 316 (150-450) k/uL MPV 7.1 Neutrophils % 75 % Lymphocytes % 15 % Monocytes % 5 % Eosinophils % 3 % Basophils % 0 % Neutrophils # 6.4 (1.3-7.7) k/uL Lymphocytes # 1.3 (1.0-4.8) k/uL Monocytes # 0.4 (0-1.0) k/uL Eosinophils # 0.2 (0-0.7) k/uL Basophils # 0.0 (0-0.2) k/uL Sodium (137-145) mmol/L Potassium (3.5-5.1) mmol/L Chloride (98-107) mmol/L Carbon Dioxide (22-30) mmol/L Anion Gap mmol/L BUN (7-17) mg/dL Creatinine (0.52-1.04) mg/dL Est GFR (CKD-EPI)AfAm (>60 ml/min/1.73 sqM) Est GFR (CKD-EPI)NonAf (>60 ml/min/1.73 sqM) Glucose (74-99) mg/dL Plasma Lactic Acid [place] (0.7-2.0) mmol/L Calcium (8.4-10.2) mg/dL Total Bilirubin (0.2-1.3) mg/dL AST (14-36) U/L ALT (4-34) U/L Alkaline Phosphatase (38-126) U/L Total Protein (6.3-8.2) g/dL Albumin (3.5-5.0) g/dL Lipase (23-300) U/L HCG, Quant mIU/mL Urine Color Yellow Urine Appearance Clear (Clear) Urine pH 7.5 (5.0-8.0) Ur Specific [place] 1.021 (1.001-1.035) Urine Protein Negative (Negative) Urine Glucose (UA) Negative (Negative) Urine Ketones Negative (Negative) Urine Blood Negative (Negative) Urine Nitrite Negative (Negative) Urine Bilirubin Negative (Negative) Urine Urobilinogen <2.0 (<2.0) mg/dL Ur Leukocyte Esterase Negative (Negative) Urine HCG, Qual Not Detected (Not Detectd) 01/17/21 01/17/21 Range/Units 16:52 16:52 WBC (3.8-10.6) k/uL RBC (3.80-5.40) m/uL Hgb (11.4-16.0) gm/dL Hct (34.0-46.0) % MCV (80.0-100.0) fL MCH (25.0-35.0) pg MCHC (31.0-37.0) g/dL RDW (11.5-15.5) % Plt Count (150-450) k/uL MPV Neutrophils % % Lymphocytes % % Monocytes % % Eosinophils % % Basophils % % Neutrophils # (1.3-7.7) k/uL Lymphocytes # (1.0-4.8) k/uL Monocytes # (0-1.0) k/uL Eosinophils # (0-0.7) k/uL Basophils # (0-0.2) k/uL Sodium 137 (137-145) mmol/L Potassium 4.4 (3.5-5.1) mmol/L Chloride 102 (98-107) mmol/L Carbon Dioxide 26 (22-30) mmol/L Anion Gap 9 mmol/L BUN 14 (7-17) mg/dL Creatinine 0.61 (0.52-1.04) mg/dL Est GFR (CKD-EPI)AfAm >90 (>60 ml/min/1.73 sqM) Est GFR (CKD-EPI)NonAf >90 (>60 ml/min/1.73 sqM) Glucose 91 (74-99) mg/dL Plasma Lactic Acid [place] 0.9 (0.7-2.0) mmol/L Calcium 9.5 (8.4-10.2) mg/dL Total Bilirubin 0.6 (0.2-1.3) mg/dL AST 39 H (14-36) U/L ALT 28 (4-34) U/L Alkaline Phosphatase 59 (38-126) U/L Total Protein 8.0 (6.3-8.2) g/dL Albumin 4.5 (3.5-5.0) g/dL Lipase 40 (23-300) U/L HCG, Quant <2.4 mIU/mL Urine Color Urine Appearance (Clear) Urine pH (5.0-8.0) Ur Specific [place] (1.001-1.035) Urine Protein (Negative) Urine Glucose (UA) (Negative) Urine Ketones (Negative) Urine Blood (Negative) Urine Nitrite (Negative) Urine Bilirubin (Negative) Urine Urobilinogen (<2.0) mg/dL Ur Leukocyte Esterase (Negative) Urine HCG, Qual (Not Detectd) Disposition Clinical Impression: Vomiting, Abdominal pain Disposition: HOME SELF-CARE Condition: Good Instructions (If sedation given, give patient instructions): Acute Nausea and Vomiting (ED), Abdominal Pain (ED) Additional Instructions: Start with clear liquid diet and advance as tolerated. Follow up with primary care physician for recheck in 1-2 days. Return for any new, worsening, or concerning symptoms. Is patient prescribed a controlled substance at d/c from ED?: No Referrals: None,Stated [Primary Care Provider] - 1-2 days Time of Disposition: 18:03
[2021-01-17 17:04] LABS: Basophils % (A) 0 %; Eosinophils # (A) 0.2 k/uL (0-0.7); Eosinophils % (A) 3 %; HCT 45.8 % (34.0-46.0); HGB 15.3 gm/dL (11.4-16.0); Lymphocytes # (A) 1.3 k/uL (1.0-4.8); Lymphocytes % (A) 15 %; MCH 30.9 pg (25.0-35.0); MCHC 33.4 g/dL (31.0-37.0); MCV 92.4 fL (80.0-100.0); Mean Platelet Volume 7.1; Monocytes # (A) 0.4 k/uL (0-1.0); Monocytes % (A) 5 %; Neutrophils # (A) 6.4 k/uL (1.3-7.7); Neutrophils % (A) 75 %; Platelet Count 316 k/uL (150-450); RBC 4.95 m/uL (3.80-5.40); RDW 13.2 % (11.5-15.5); WBC 8.6 k/uL (3.8-10.6)
[2021-01-17 17:06] LABS: Appearance,Urine Clear (Clear); Bilirubin,Urine Negative (Negative); Blood,Urine Negative (Negative); Color,Urine Yellow; Glucose,Urine (UA) Negative (Negative); Ketones,Urine Negative (Negative); Leukocyte Esterase,Urine Negative (Negative); Nitrite,Urine Negative (Negative); PH, Urine 7.5 (5.0-8.0); Protein,Urine Negative (Negative); Specific Gravity,Urine 1.021 (1.001-1.035); Urobilinogen,Urine <2.0 mg/dL (<2.0)
[2021-01-17 17:17] LABS: ALT 28 U/L (4-34); AST 39 U/L (14-36); African American GFR (CKD) >90 (>60 ml/min/1.73 sqM); Albumin 4.5 g/dL (3.5-5.0); Alkaline Phosphatase 59 U/L (38-126); Anion Gap 9 mmol/L; Blood Urea Nitrogen 14 mg/dL (7-17); Calcium 9.5 mg/dL (8.4-10.2); Carbon Dioxide 26 mmol/L (22-30); Chloride 102 mmol/L (98-107); Glucose 91 mg/dL (74-99); Lipase 40 U/L (23-300); Non-African American GFR(CKD) >90 (>60 ml/min/1.73 sqM); Potassium 4.4 mmol/L (3.5-5.1); Sodium 137 mmol/L (137-145); Total Bilirubin 0.6 mg/dL (0.2-1.3)
[2021-01-17 17:33] LABS: HCG,Quantitative Serum <2.4 mIU/mL
[2021-01-17] MEDS ORDERED: ONDANSETRON 4 MG ODT STARTER PACK 2 TAB BTL PO STA (18:03)
[2021-01-17 18:41] VITALS: BP 101/72; PULSE 84
== END 2021-01-17 18:33 | disposition home or self-care (01) ==
LOC: EC 14:48
DX: R10.9 Unspecified abdominal pain (principal); R11.10 Vomiting, unspecified; F41.9 Anxiety disorder, unspecified; F32.9 Major depressive disorder, single episode, unspecified; F17.290 Nicotine dependence, other tobacco product, uncomplicated; F12.90 Cannabis use, unspecified, uncomplicated; Z72.89 Other problems related to lifestyle
CPT/HCPCS: 36415; 80053; 83605; 83690; 85025; 81003; 81025; 84702; 99284; 96374; 96375; 96361; J2405

== ENCOUNTER → 2022-06-16 | Outpatient (CLI) | payer OTHER ==
--- NOTE | 2022-06-16 23:30 | CT ---
EXAMINATION TYPE: CT angio chest DATE OF EXAM: 06/16/2022 COMPARISON: NONE HISTORY: chest pain CT DLP: 238.6 mGycm. Automated Exposure Control for Dose Reduction was Utilized. CONTRAST: CTA scan of the thorax is performed with IV Contrast, patient injected with 100ml mL of Isovue 300, p ulmonary embolism protocol. MIP Images are created on CT scanner and reviewed. FINDINGS: LUNGS: Some multifocal areas of increased groundglass opacity in the bilateral lower lungs. No pleura l effusion or pneumothorax is seen bilaterally. Tracheobronchial tree is patent. No suspicious pulmon ian nodules or masses. MEDIASTINUM: Suboptimal study with most dense contrast in SVC. No convincing CT evidence for acute p ulmonary embolism. There are no greater than 1 cm hilar or mediastinal lymph nodes. No cardiomegaly or pericardial effusion is seen. OTHER: No additional significant abnormality is seen. IMPRESSION: Suboptimal study without acute pulmonary embolism. Areas of groundglass opacity in the lo wer lung could reflect mild edema and/or developing acute infiltrates. Correlate clinically. Air-trap ping is in differential.
== END | disposition home or self-care (01) ==
LOC: RADCTMAIN 15:22
PROVIDERS: ATTEND Internal Medicine
DX: R91.8 Other nonspecific abnormal finding of lung field (principal); Z86.718 Personal history of other venous thrombosis and embolism
CPT/HCPCS: 71275; Q9967